=== PATIENT | female | born 1995 | race Caucasian/White ===

== ENCOUNTER 2017-03-30 16:58 | Emergency (ER) | payer SELFPAY ==
--- NOTE | 2017-04-01 08:23 | ER ---
ADMIT: 03/30/2017 RM/LOC: ER [facility] MR#: [id number] [facility] [address] [place], [place] [id number] GAYLA LOYOLA [address] [place] [address] Emergency Room Report SEX: F AGE: 21 : 1995 DATE: 03/30/2017 TIME: 1658 Please refer to my T-sheet for complete H and P. HISTORY OF PRESENT ILLNESS: Briefly, the patient is a 21-year-old, who comes in with 4-5 days on and off with dysuria. Says it really hurts at times and then she does not have any symptoms. She had a lot of pressure down low that brought her in tonight. No high fevers. No other complaints. No vomiting, still able to eat. PHYSICAL EXAMINATION: VITAL SIGNS: Stable. HEENT: Grossly normal. ABDOMEN: Mildly tender right in the suprapubic. No pain at McBurney's point. No rebound. No guarding. No pain in the upper abdomen whatsoever. No CVA tenderness. EMERGENCY DEPARTMENT COURSE: UA was negative. UA showed 2+ leukocyte esterase, 5 red cells. I gave her Pyridium 200 p.o., and Bactrim DS 1 p.o. She is ready for discharge. ASSESSMENT: 1. Dysuria. 2. Urinary tract infection with culture pending. PLAN: Bactrim DS b.i.d. for 7 days. Pyridium 200 t.i.d. for 2 days. Return if worse. Fluids. Follow up with Dr. Brown this week for recheck. James Santiago MD/ jose ramon JOB #: [id number] CC: James Santiago MD, Attending Physician Luke Brown MD, Family Physician
== END 2017-03-30 18:20 | disposition home or self-care (01) ==
LOC: ER 16:58
DX: N39.0 Urinary tract infection, site not specified (principal); R30.0 Dysuria; F17.200 Nicotine dependence, unspecified, uncomplicated; Z90.49 Acquired absence of other specified parts of digestive tract; Z90.89 Acquired absence of other organs; Z88.0 Allergy status to penicillin